=== PATIENT | male | born 1970 | race Two or more races ===

== ENCOUNTER 2019-11-24 14:06 | Emergency (ER) | payer OTHER ==
[~2019-11-24] VITALS: Ht 177.8 cm; Wt 90.7 kg
== END 2019-11-24 18:40 | disposition home or self-care (01) ==
LOC: ER 14:06
DX: S81.822A Laceration with foreign body, left lower leg, initial encounter (principal); W45.8XXA Other foreign body or object entering through skin, initial encounter; Y93.89 Activity, other specified; Y92.89 Other specified places as the place of occurrence of the external cause; Y99.8 Other external cause status

== ENCOUNTER 2019-12-04 15:57 | Emergency (ER) | payer OTHER ==
[~2019-12-04] VITALS: Ht 177.8 cm; Wt 90.7 kg
== END 2019-12-04 17:59 | disposition home or self-care (01) ==
LOC: ER 15:57
DX: T81.49XA Infection following a procedure, other surgical site, initial encounter (principal)

== ENCOUNTER 2019-12-06 12:32 | Emergency (ER) | payer OTHER ==
[~2019-12-06] VITALS: Ht 177.8 cm; Wt 90.7 kg
[2019-12-06] MEDS ORDERED: KEFLEX500 MG (13:22)
[2019-12-06] MEDS ORDERED: LEVAQUIN750 MG PO (13:22)
[2019-12-06] MEDS ORDERED: [UNRECOGNIZED DRUG - OTHER] (13:22)
== END 2019-12-06 14:49 | disposition home or self-care (01) ==
LOC: ER 12:32
DX: Z48.02 Encounter for removal of sutures (principal)

== ENCOUNTER → 2022-08-08 | Emergency (ER) | payer OTHER ==
[~2022-08-08] VITALS: Ht 177.8 cm; Wt 93.0 kg
[~2022-08-08] MED LIST: KEFLEX500 MG; LEVAQUIN750 MG PO; ZESTRIL10 M1 PO; [UNRECOGNIZED DRUG - OTHER]
== END | disposition home or self-care (01) ==
LOC: ER 01:25
DX: I10 Essential (primary) hypertension (principal); Z88.0 Allergy status to penicillin; R51.9 Headache, unspecified

== ENCOUNTER 2023-03-29 12:54 | Emergency (ER) | payer OTHER ==
[~2023-03-29] VITALS: Ht 177.8 cm; Wt 88.5 kg
[2023-03-29] MEDS ORDERED: CYCLOBENZAPRINE10 MG PO (17:09)
[2023-03-29] MEDS ORDERED: NORFLEX100MG PO (17:09)
[2023-03-29] MEDS ORDERED: KETO10TA2 PO (17:09)
== END 2023-03-29 17:24 | disposition home or self-care (01) ==
LOC: ER 12:54
DX: M54.50 Low back pain, unspecified (principal); Z88.0 Allergy status to penicillin; I10 Essential (primary) hypertension